=== PATIENT | male | born 1975 | race Two or more races ===

== ENCOUNTER 2022-04-17 10:53 | Inpatient (IN) | payer OTHER ==
[~2022-04-17] VITALS: Ht 177.8 cm; Wt 159.7 kg
[2022-04-17] MEDS ORDERED: LOSARTAN POTASS25 MG PO (11:12)
[2022-04-17] MEDS ORDERED: PROPRANOLOL HCL10 MG (11:12)
[2022-04-17] MEDS ORDERED: FLUOXETINE HCL20 MG (11:13)
--- NOTE | 2022-04-17 11:14 | NUR ---
PTE ALERTA Y ORIENTADO POR CRISTHIAN ESFERAS CON BUEN PATRON RESPIRATORIO. REFIERE QUE HOY LLEVA 3 EP DE DIARREAS, DOLOR ABDOMINAL Y SE REALIZO UNOS LABORATORIOS POR EL CUAL SALIO CON LA BILI TOTAL EN 8.42
--- NOTE | 2022-04-17 12:23 | NUR ---
SE HERMANN MUESTRAS DE LAB MAX ORDEN MEDICA Y BAJO MEDIDAS ASEPTICAS. SE CANALIZA #[id number] EN LT. PTE PENDIENTE A RESULTADOS.
--- NOTE | 2022-04-17 15:39 | NUR ---
SE RECIBE PACIENTE DE TURNO ANTERIOR ALERTA EN FLACO. PTE CON VENOPUCNION PATENTE BAJANDO 0.9NSS @200ML/HR.PTE PENDIENTE U/A.,
--- NOTE | 2022-04-17 23:52 | NUR ---
PACIENTE ALERTA Y ORIENTADO X3. SE ORIENTA SOBRE TX A RECIBIR Y REFIRIO ENTENDER. REALIZA MUESTRA DE LABORATORIO BAJO MEDIDA ASEPTICA. SE ADMINISTRA MEDICAMENTOS ORDENADOS POR MD. SE MANTIENE BAJO OBSERVACION POR CAMBIOS SIGNIFICATIVOS. PACIENTE CONSULTADO CON MEDICINA INTERNA. IV FLUIS PATENTE Y LIAM DE EDEMA Y ERITEMA.
[2022-04-22] MEDS ORDERED: GABAPENTIN100 M2 (14:24)
== END 2022-04-22 16:23 | disposition home or self-care (01) | DRG 443 ==
LOC: ER 10:53 → SURG 04-18 13:27 → SEC-K 04-18 13:27 → SURG 04-19 04:08
PROVIDERS: ADMIT Internal Medicine; ATTEND Internal Medicine
PROC: BW21ZZZ Computerized Tomography (CT Scan) of Abdomen and Pelvis (ICD-10-PCS; principal; 2022-04-17)
PROC: BW40ZZZ Ultrasonography of Abdomen (ICD-10-PCS; 2022-04-17)
PROC: BW30ZZZ Magnetic Resonance Imaging (MRI) of Abdomen (ICD-10-PCS; 2022-04-19)
DX: R17 Unspecified jaundice (principal); I11.9 Hypertensive heart disease without heart failure; R74.01 Elevation of levels of liver transaminase levels
CPT/HCPCS: 74182